=== PATIENT | female | born 1970 | race Caucasian/White ===

== ENCOUNTER 2016-04-01 | Outpatient (CLI) | payer OTHER, MEDICAID | END 2016-04-01 14:03 | disposition EMS.NT ==

== ENCOUNTER 2016-04-02 11:29 | Emergency (ER) | payer OTHER, MEDICAID ==
[2016-04-02] MEDS ORDERED: ONDANSETRON ODT 4 MG TABLET TL STA (12:43)
[2016-04-02] MEDS ORDERED: HYDROcod/ACETAM 5/325 MG TABLET PO STA (12:43)
[2016-04-02] MEDS ORDERED: HYDROcod/ACETAM 5/325 MG TABLET ONE (12:55)
[2016-04-02] MEDS ORDERED: ONDANSETRON ODT 4 MG TABLET ONE (12:55)
--- NOTE | 2016-04-02 13:43 | CT Preliminary Report ---
Exam: CT Head W/O IMPRESSION: Normal head CT. [facility] SITE ID: [id number]
[2016-04-02 13:44] LABS: BILIRUBIN,URINE NEGATIVE (NEGATIVE)
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
[2016-04-02 13:58] LABS: UA CHARGE (STRIP ONLY) YES; UR CULTURE IF IND NOT INDICATED
[2016-04-02 15:25] VITALS: BP 120/80
--- NOTE | 2016-04-02 15:46 | MRI Report ---
EXAM: MRI LUMBAR SPINE WITHOUT CONTRAST EXAM DATE: 04/02/2016 03:16 PM. CLINICAL HISTORY: Bilateral low back pain. Buttock numbness. Left leg pain and spasm. COMPARISON: October 05, 2013. TECHNIQUE: Multiplanar, multisequence T1-weighted and fluid-sensitive sequences of the lumbar spine f rom T12 to S1 without contrast. Other: None. FINDINGS: Spinal Cord: The conus terminates at T12-L1. No signal abnormality in the visualized spinal cord. Alignment: No change of alignment. Bone Marrow: Five fkk-kpf-dtwioma lumbar vertebral bodies are assumed. Vertebral body heights are traci ntained. Minimal degenerative endplate signal changes anteriorly and superiorly at L4. No acute marro w edema. Disk Levels/Facets: T11-T12: Stable-appearing chronic degenerative disc disease. T12-L1: Unremarkable. L1-L2: No additional degenerative disk space narrowing or facet hypertrophy. Persistent but less prom inent disk protrusion on the right, less prominent thecal sac indentation, the central canal is paten t. No significant or progressive foraminal narrowing. L2-L3: No significant stenosis. Normal broad-based bulge. Mild facet arthropathy. L3-L4: Stable degenerative disk disease and facet arthropathy. Broad-based bulge. Intraforaminal and far lateral broad-based disk protrusions are also present similar to the prior exam. Minimal central stenosis. Minimal to mild ealy-uynpjwl-dtam-right lateral recess stenosis. Bilateral mild to moderate foraminal stenosis. L4-L5: Stable degenerative disk disease and facet arthropathy. Broad-based disc bulge with additional intraforaminal disc protrusion, more severe on the right than the left. No significant central steno sis. Minimal lateral recess narrowing. Bilateral persistent foraminal stenosis, mild to moderate on t he left but moderate to severe on the right. L5-S1: Stable mild disk space narrowing. Shallow broad-based bulge without progressive or focal extru charlette. Mild to moderate left worse than right facet arthropathy. Patent central canal and lateral rece sses. Stable mild foraminal stenosis. Musculature: Normal. No edema or fatty atrophy. Other: None. IMPRESSION: 1. No change of alignment. No acute vertebral body height loss. 2. Stable chronic degenerative changes at T11-T12. 3. Improved less prominent right posterior disc protrusion at L1-L2. 4. Stable-appearing degenerative changes with stenosis at L3-L4. 5. Stable-appearing degenerative changes with more prominent right than left foraminal stenosis from intraforaminal disc protrusions at L4-L5. 6. Stable degenerative changes without progressive stenosis at L5-S1. Comment: The following findings are so common in adults without low back pain that while we report th eir presence, they must be interpreted with caution and in the context of the clinical situation. (Re caterina Milner et al, Spine 2001) Prevalence of findings in patients without low back pain: Disk degeneration (any evidence): 92% Disk desiccation/T2 signal loss: 83% Disk height loss: 56% Disk bulge: 64% Disk protrusion: 32% Annular tear/high intensity zone: 38% [facility] Referring Provider Line: [phone] SITE ID: [id number]
== END 2016-04-02 16:47 | disposition home or self-care (01) ==
LOC: ED 11:29
DX: S16.1XXA Strain of muscle, fascia and tendon at neck level, initial encounter (principal); S20.211A Contusion of right front wall of thorax, initial encounter; M54.5 Low back pain; M25.519 Pain in unspecified shoulder; M79.603 Pain in arm, unspecified; R51 Headache; V59.40XA Driver of pick-up truck or van injured in collision with unspecified motor vehicles in traffic accident, initial encounter; Y92.410 Unspecified street and highway as the place of occurrence of the external cause; F17.200 Nicotine dependence, unspecified, uncomplicated
CPT/HCPCS: 70450; 72148; 81003; 99282; 99284; A9270; Q0162; 81001; 87086

== ENCOUNTER 2019-03-27 10:58 | Outpatient (CLI) | payer SELFPAY ==
--- NOTE | 2019-03-28 13:29 | Mammography Report ---
Reason: ROUTINE MAMMO Procedure Date: 03/27/2019 Accession Number: [id number] / [id number] Procedure: MGS - Screening Mammo Dig Bilat CPT Code: Final Report FULL RESULT: EXAM: Screening Mammo Dig Bilat DATE: 03/27/2019 11:18 AM CLINICAL HISTORY: Routine screening. Mother with breast cancer. TECHNIQUE: (B) - Bilateral CC and MLO views were obtained. COMPARISON: 05/31/2013 PARENCHYMAL PATTERN: (D) - The breasts demonstrate heterogeneously dense fibroglandular parenchyma bilaterally. FINDINGS: No significant interval change. There are no suspicious masses, calcifications, or areas of distortion. IMPRESSION: Negative examination. BI-RADS category 1. RECOMMENDATION: (ANNUAL) - Recommend routine annual screening mammography. BI-RADS CATEGORY: (1) - Negative. STANDARD QUALIFYING STATEMENTS: 1. This examination was not reviewed with the aid of Computer-Aided Detection (CAD). 2. A negative or benign imaging report should not preclude biopsy if clinically suspicious findings are present. 3. Dense breasts may obscure an underlying neoplasm. 4. This examination was reviewed without the aid of 3D breast imaging (tomosynthesis).
== END 2019-03-27 10:59 | disposition home or self-care (01) ==
LOC: DI.S 10:58
DX: Z12.31 Encounter for screening mammogram for malignant neoplasm of breast (principal); Z80.3 Family history of malignant neoplasm of breast
CPT/HCPCS: 77067

== ENCOUNTER 2020-12-21 13:05 | Emergency (ER) | payer MEDICAID ==
[2020-12-21 13:21] VITALS: BP 140/80
--- NOTE | 2020-12-21 13:53 | ED Physician Documentation ---
History of Present Illness - Stated complaint Stated Complaint: FEMALE - Chief complaint Chief Complaint: Abd Pain - History obtained from History obtained from: Patient - History of Present Illness Timing: Today Pain level max: 0 Pain level now: 0 - Additonal information Additional information: Patient is a 50-year-old female who comes in to the emergency department today complaining of bright red blood per rectum intermittently over the past few weeks. She states that she has a hemorrhoid and notices bright red blood on the toilet paper. She states it is not mixed with the stool. Mainly occurs after straining. She denies any abdominal pain, nausea or vomiting. She also states that she has had a rash in her gluteal cleft over the past few days. Nothing makes it better or worse, described as itchy. 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 - Present Medications Home Medications: Ambulatory Orders Medication Instructions Recorded Confirmed HYDROcod/ACETAM 5/325 [Vicodin 1 - 2 ea PO Q6H PRN #20 tablet 04/02/16 5/325] Hydrocortisone Acetate [Proctocort] 30 mg RC DAILY PRN #10 supp.rect 12/21/20 predniSONE [Deltasone] 10 mg PO [id number] #42 tab 12/21/20 - Allergies Allergies/Adverse Reactions: Allergies Allergy/AdvReac Type Severity Reaction Status Date / Time No Known Drug Allergies Allergy Verified 12/21/20 13:20 - Social History Does the pt smoke?: Yes Smoking Status: Current every day smoker Does the pt drink ETOH?: Yes Does the pt have substance abuse?: No - POLST Patient has POLST: No PD ED PE NORMAL - Vitals Vital signs reviewed: Yes - General General: Alert and oriented X 3, No acute distress - HEENT HEENT: Moist mucous membranes - Neck Neck: Supple, no meningeal sign - Cardiac Cardiac: RRR - Respiratory Respiratory: No respiratory distress, Clear bilaterally - Abdomen Abdomen: Soft, Non tender, Non distended - Rectal Rectal: Other (Small external hemorrhoids. None are thrombosed or actively bleeding. There is a slight light erythematous rash to the gluteal cleft area. No satellite lesions. No papules or pustules.) - Derm Derm: Warm and dry - Neuro Neuro: Alert and oriented X 3 - Psych Psych: Normal mood, Normal affect Results - Vitals Vitals: Vital Signs - 24 hr 12/21/20 13:13 Temperature 37.0 C Heart Rate 58 L Respiratory 16 Rate Blood Pressure 140/80 H O2 Saturation 100 Oxygen O2 Source Room air PD MEDICAL DECISION MAKING - ED course Complexity details: considered differential, d/w patient ED course: 50-year-old female with slight external hemorrhoids and what appears to be a slight dermatitis in her gluteal cleft. Will place on oral steroids to see if this clears the rash. Does not appear to be a fungal infection at this time. We will place on hydrocortisone suppositories for the hemorrhoids. Patient counseled regarding signs and symptoms for which I believe and urgent re- evaluation would be necessary. Patient with good understanding of and agreement to plan and is comfortable going home at this time This document was made in part using voice recognition software. While efforts are made to proofread this document, sound alike and grammatical errors may occur. Departure - Departure Disposition: 01 Home, Self Care Clinical Impression: Dermatitis Hemorrhoid Qualifiers: Hemorrhoid type: unspecified Qualified Code(s): K64.9 - Unspecified hemorrhoids Condition: Good Instructions: ED Hemorrhoids Follow-Up: your,doctor as needed [Other] Prescriptions: predniSONE [Deltasone] 10 mg PO [id number] #42 tab Hydrocortisone Acetate [Proctocort] 30 mg RC DAILY PRN #10 supp.rect PRN Reason: Hemorrhoids Comments: Your prescriptions were sent to [facility] in [place]. This should help with the rash and the hemorrhoids. Please follow-up with your doctor as needed for further care. Return if you worsen. This should stop the bleeding as well. Discharge Date/Time: 12/21/20 14:07
== END 2020-12-21 14:07 | disposition home or self-care (01) ==
LOC: ED 13:05
DX: K64.9 Unspecified hemorrhoids (principal); L30.9 Dermatitis, unspecified; F17.200 Nicotine dependence, unspecified, uncomplicated
CPT/HCPCS: 99282; 99284

== ENCOUNTER 2022-06-08 10:04 | Outpatient (CLI) | payer MEDICAID ==
--- NOTE | 2022-06-08 12:51 | XRAY Report ---
PROCEDURE: Finger(s) LT INDICATIONS: SWELLING OF LEFT INDEX FINGER TECHNIQUE: AP hand, 2 views of the second finger(s) acquired. COMPARISON: None. FINDINGS: Bones: No fractures or dislocations. No suspicious bony lesions. Distal interphalangeal severe join t space narrowing and marginal osteophytes. Surrounding soft tissue swelling Soft tissues: No suspicious soft tissue calcifications or masses. IMPRESSION: Second digit DIP arthritic changes Reviewed by: Fredi Barrera MD on 06/08/2022 11:50 AM ROSALIO Approved by: Fredi Barrera MD on 06/08/2022 11:50 AM ROSALIO Station ID: [id number]
== END 2022-06-08 23:59 | disposition home or self-care (01) ==
LOC: DI.S 10:04
PROVIDERS: ATTEND Physician Assistant Medical
DX: M19.042 Primary osteoarthritis, left hand (principal)

== ENCOUNTER 2022-08-10 07:58 | Outpatient (CLI) | payer MEDICAID ==
[2022-08-10 14:32] LABS: BASOPHILS % (AUTO) 0.7 %; EOSINOPHILS # (AUTO) 0.1 10^3/uL (0.0-0.7); EOSINOPHILS % (AUTO) 3.2 %; HCT - HEMATOCRIT 40.7 % (37.0-47.0); HGB - HEMOGLOBIN 13.3 g/dL (12.0-16.0); LYMPHOCYTES # (AUTO) 1.5 10^3/uL (1.5-3.5); MEAN CORPUSCULAR HEMOGLOBIN 31.8 pg (27.0-31.0); MEAN CORPUSCULAR HGB CONC 32.7 g/dL (32.0-36.0); MEAN CORPUSCULAR VOLUME 97.4 fL (81.0-99.0); MEAN PLATELET VOLUME 11.1 fL (7.9-10.8); MONOCYTES # (AUTO) 0.4 10^3/uL (0.0-1.0); NEUTROPHILS # (AUTO) 2.4 10^3/uL (1.5-6.6); NEUTROPHILS % (AUTO) 53.9 %; PLT - PLATELET COUNT 267 10^3/uL (130-450); RED BLOOD COUNT 4.18 10^6/uL (4.20-5.40); WHITE BLOOD COUNT 4.4 x10^3/uL (4.8-10.8)
[2022-08-10 21:07] LABS: ALBUMIN 4.7 g/dL (3.2-5.5); ALBUMIN/GLOBULIN RATIO 1.8 (1.0-2.2); ALKALINE PHOSPHATASE 43 IU/L (42-121); ALT ALANINE AMINOTRANSFERASE 16 IU/L (10-60); AST ASPARTATE AMINOTRANSFERASE 17 IU/L (10-42); BILIRUBIN,TOTAL 0.6 mg/dL (0.2-1.0); BUN - BLOOD UREA NITROGEN 13 mg/dL (6-20); CALCIUM 9.4 mg/dL (8.5-10.3); CARBON DIOXIDE - CO2 31 mmol/L (21-32); CHLORIDE 104 mmol/L (101-111); CHOL/HDL RATIO 2.6 (<4.4); CHOLESTEROL 206 mg/dL; CREATININE 0.7 mg/dL (0.4-1.0); GFR - MDRD 87 (>89); GLUCOSE 99 mg/dL (70-100); HDL CHOLESTEROL 80 mg/dL; LDL CHOLESTEROL,CALCULATED 112 mg/dL; LDL/HDL RATIO 1.4 (<4.4); POTASSIUM 4.2 mmol/L (3.5-5.0); SODIUM 143 mmol/L (135-145); TOTAL PROTEIN 7.3 g/dL (6.7-8.2); TRIGLYCERIDES 72 mg/dL; VLDL CHOLESTEROL 14 mg/dL
== END 2022-08-10 07:59 | disposition home or self-care (01) ==
LOC: LAB.S 07:58
PROVIDERS: ATTEND Nurse Practitioner Acute Care
DX: Z13.228 Encounter for screening for other metabolic disorders (principal); Z13.220 Encounter for screening for lipoid disorders; Z13.29 Encounter for screening for other suspected endocrine disorder; Z13.0 Encounter for screening for diseases of the blood and blood-forming organs and certain disorders involving the immune mechanism
CPT/HCPCS: 36415; 80053; 80061; 83721; 84443; 85025

== ENCOUNTER 2022-08-19 08:22 | Outpatient (CLI) | payer MEDICAID ==
--- NOTE | 2022-08-20 09:35 | Mammography Report ---
BILATERAL DIGITAL SCREENING MAMMOGRAM 3D/2D WITH EXAGGERATED CC: 08/19/2022 CLINICAL: Routine screening. Family history of breast cancer. Comparison is made to exam dated: 05/31/2013 mammogram - [facility]. Both breasts are heterogeneously dense, which may obscure small masses (category c / 51-75% glandular tissue). No significant masses, calcifications, or other findings are seen in either breast. There has been no significant interval change. IMPRESSION: NEGATIVE There is no mammographic evidence of malignancy. A 1 year screening mammogram is recommended. Based on the Tyrer Cuzick model (a risk assessment model) the patients lifetime risk is 17.9% and he r 10 year risk is 5.3%. According to the ACR, ACS, and NCCN guidelines, an annual breast MRI exam ananya ng with mammogram is recommended if the patients lifetime risk is 20% or greater. This exam was interpreted at Station ID: [id number]. NOTE: For mammograms, a report in lay terms will be sent to the patient. Approximately 15% of breast malignancies will not be visualized mammographically. In the management of a palpable breast mass, a negative mammogram must not discourage biopsy of a clinically suspicious lesion. Electronically Signed By: Stanley [email or web address]:08/19/2022 12:35:26 letter sent: No_Letter ACR BI-RADS Category 1: Negative 3341F PARENCHYMAL PATTERN: (D) - The breast(s) demonstrate(s) heterogeneously dense fibroglandular karina reeves. BI-RADS CATEGORY: (1) - 1 Mammogram [id number] 1 year screening LATERALITY: (B)
== END 2022-08-19 08:23 | disposition home or self-care (01) ==
LOC: DI.S 08:22
PROVIDERS: ATTEND Nurse Practitioner Acute Care
DX: Z12.31 Encounter for screening mammogram for malignant neoplasm of breast (principal); Z80.3 Family history of malignant neoplasm of breast